=== PATIENT | male | born 1940 | race Caucasian/White ===

== ENCOUNTER → 2016-05-04 | Outpatient (CLI) | payer OTHER ==
[~2016-05-04] MED LIST: ACID CONTROL20 MG PO; ALLERGY25 MG PO; AMLODIPINE BESY10 MG PO; CALCIUM 600 +1 EAC1 PO; FISH OIL 1,001000 M2 PO; VITAMIN C500 M1 PO; ZESTRIL40 MG PO; ZINC50 M1 PO
== END ==
LOC: MRI 10:18
PROVIDERS: Family Medicine
DX: R09.89 Other specified symptoms and signs involving the circulatory and respiratory systems (principal)

== ENCOUNTER → 2016-05-16 | Outpatient (CLI) | payer OTHER ==
[~2016-05-16] VITALS: Ht 180.3 cm; Wt 43.5 kg
[~2016-05-16] MED LIST changes: +ASPIR 8181 M1 PO; +PLAVIX 300 MG300 M1 PO; +PLAVIX 75 MG TA75 M1 PO
[2016-05-16 07:41] VITALS: BP 154/67
[2016-05-16 07:41] LABS: HEMATOCRIT 44.8 % (42.0-52.0); HEMOGLOBIN 15.2 gm/dL (14.0-18.0); MCH 29.6 pg (26.0-34.0); MCHC 33.9 g/dL (28.0-37.0); MCV 87.4 fL (80.0-100.0); RBC 5.12 mil/uL (4.50-6.00); RDW 14.2 % (10.5-14.5); WBC 7.2 thou/uL (4.0-11.0)
[2016-05-16 07:52] VITALS: BP 154/67
[2016-05-16 07:52] LABS: POTASSIUM 4.2 mmol/L (3.5-5.1)
[2016-05-16 07:56] LABS: APTT 26.9 Seconds (24.5-32.8)
== END ==
LOC: SPEC 07:10
PROVIDERS: Internal Medicine
DX: I25.10 Atherosclerotic heart disease of native coronary artery without angina pectoris (principal); I70.1 Atherosclerosis of renal artery; I10 Essential (primary) hypertension; I65.22 Occlusion and stenosis of left carotid artery; I70.213 Atherosclerosis of native arteries of extremities with intermittent claudication, bilateral legs; K21.9 Gastro-esophageal reflux disease without esophagitis; Z96.651 Presence of right artificial knee joint; E78.4 Other hyperlipidemia; F17.210 Nicotine dependence, cigarettes, uncomplicated

== ENCOUNTER → 2016-05-18 | Outpatient (CLI) | payer OTHER ==
[~2016-05-18] VITALS: Ht 180.3 cm; Wt 72.6 kg
[2016-05-18 07:20] VITALS: BP 129/58
[2016-05-18 11:00] VITALS: BP 133/70
[2016-05-18 11:15] VITALS: BP 133/70
[2016-05-18 11:30] VITALS: BP 147/47
[2016-05-18 11:45] VITALS: BP 127/52
[2016-05-18 12:45] VITALS: BP 115/41
== END ==
LOC: SPEC 06:56
DX: I70.211 Atherosclerosis of native arteries of extremities with intermittent claudication, right leg (principal); I70.1 Atherosclerosis of renal artery; I25.10 Atherosclerotic heart disease of native coronary artery without angina pectoris; I10 Essential (primary) hypertension; Z96.651 Presence of right artificial knee joint; K21.9 Gastro-esophageal reflux disease without esophagitis; E78.4 Other hyperlipidemia; F17.210 Nicotine dependence, cigarettes, uncomplicated

== ENCOUNTER → 2016-09-19 | Outpatient (CLI) | payer OTHER | LOC: ULTRA 11:44 | DX: I73.9 Peripheral vascular disease, unspecified (principal); M79.605 Pain in left leg; M79.604 Pain in right leg ==

== ENCOUNTER → 2016-10-31 | Outpatient (CLI) | payer OTHER | LOC: RAD 09:11 | DX: R06.00 Dyspnea, unspecified (principal) ==

== ENCOUNTER → 2016-11-08 | Outpatient (CLI) | payer OTHER | LOC: RAD 08:50 → SPEECH 08:50 | DX: R47.02 Dysphasia (principal) ==

== ENCOUNTER → 2016-11-28 | Outpatient (CLI) | payer OTHER | LOC: CAT 08:04 | DX: R63.4 Abnormal weight loss (principal) ==

== ENCOUNTER → 2018-08-04 | Outpatient (CLI) | payer OTHER | LOC: RAD 08:02 | DX: J70.3 Chronic drug-induced interstitial lung disorders (principal); Z86.11 Personal history of tuberculosis ==

== ENCOUNTER → 2019-03-02 | Outpatient (CLI) | payer OTHER | LOC: CAT 10:44 | DX: I65.23 Occlusion and stenosis of bilateral carotid arteries (principal); R90.82 White matter disease, unspecified ==

== ENCOUNTER → 2019-04-01 | Outpatient (CLI) | payer OTHER ==
[~2019-04-01] VITALS: Ht 177.8 cm; Wt 72.6 kg
[~2019-04-01] MED LIST changes: +FISH OIL 1,0001 EAC9 PO; +SLEEP AID50 MG PO; +[UNRECOGNIZED DRUG - OTHER] PO
--- NOTE | 2019-04-02 15:08 | PATH ---
[facility] [address] [place] [address] PATHOLOGY RPT PROCEDURE Name: ROSALVA WALKER Room #: REG RACHEL Padgett.#: [id number] Admission: 04/01/19 Date of : 38 Discharge: Report #: [id number] Path Case #: [id number] [facility] Accession Number: [id number] . 01 Material submitted: . esophagus - BX DISTAL ESOPHAGUS. Modifiers: distal . 01 Clinical history: . Dysphagia, reflux, R/O Landon's . 02 Diagnosis: Gastroesophageal mucosa, distal esophagus R/O Landon's, endoscopic biopsy: - Specialized columnar epithelium (gastric cardia-type mucosa) with intestinal metaplasia, consistent with Landon's metaplasia. - Negative for dysplasia. - Squamous mucosa with mild esophagitis. . (IUV:kyaw; 04/02/2019) QMS 04/02/2019 1319 Local . 02 Electronically signed: . Estephanie Rivera MD, Pathologist NPI- [id number] . 01 Gross description: . The specimen is received in formalin, labeled "Rosalva Walker", "biopsy distal esophagus". Received are multiple segments of pale white-del rio soft tissue ranging in size from 0.1 cm to 0.2 cm. The specimen is entirely submitted in cassette A1.([facility]; 04/01/2019) BETH/CLARITA 04/01/2019 1738 Local . 02 Pathologist provided ICD-10: K22.70, K20.9 . 02 CPT . 691996 Specimen Comment: A courtesy copy of this report has been sent to [phone] Specimen Comment: Report sent to Performed at: [address] [id number] MD Dereck Antonio MD Phone: [phone] Performed at: [address] [id number] MD Estephanie Rivera MD Phone: [phone]
--- NOTE | 2019-04-06 09:58 | P ---
[facility] [address] [place] [address] PROCEDURE REPORT Name: JERO RICHARDS Room #: REG [facility] Ave#: [id number] Admission: 04/01/19 Attend Phys: Alex Joseph Discharge: Date of : 38 Report #: [id number] THIS REPORT FOR: cc: Emir Grimm,Alex Quiñones MD ~ CC: Alex Grimm DO DATE OF SERVICE: 04/01/2019 PROCEDURE PERFORMED: Upper endoscopy with biopsies and esophageal dilation. HISTORY OF PRESENT ILLNESS: The patient is a 78-year-old male with a history of dysphagia. He underwent an upper endoscopy by myself in 2015. A 51-Croatian dilation was performed at that time. He states there was not much benefit with dilation in the past, but at that time, he was taking PPI therapy. He is no longer taking a PPI, but uses Tums on a p.r.n. basis for heartburn at times. Plan is for repeat upper endoscopy with dilation. DESCRIPTION OF PROCEDURE: The risks and benefits of the procedure were explained to the patient, those risks including but not limited to bleeding, perforation and the risk of sedation. He understood these risks and gave informed consent. Sedation was given using propofol per anesthesia. Next, using a standard Olympus upper endoscope, the scope was placed in the patient's mouth and advanced under direct vision through the esophagus, stomach and into the second portion of the duodenum. The upper and mid esophagus was normal in appearance, although it was mildly dilated. In the distal esophagus at the GE junction, a possible short segment Landon's was noted. Biopsies were obtained. Also noted was grade A erosive esophagitis. No strictures were seen. Upon entering the stomach, small hiatal hernia was noted. Overall, the gastric mucosa was normal. The pylorus was normal and patent. The duodenal bulb, first and second portion were all normal. The scope was then brought back up into the patient's stomach and a Savary guidewire was inserted through the scope, leaving the guidewire in place as the scope was then withdrawn. Next, a 54-Croatian Savary dilation of the esophagus was performed without difficulty. The wire and dilator were removed. The scope was reintroduced into the patient's stomach. A small mucosal tear was noted in the proximal esophagus. No evidence of bleeding. The scope was then withdrawn and the procedure terminated. The patient tolerated the procedure well. IMPRESSION: 1. Possible short segment Landon's. 2. Grade A erosive esophagitis. 3. Small hiatal hernia. [address] [address] PROCEDURE REPORT Name: JERO RICHARDS Room #: REG CLNatalie Dorado#: [id number] Admission: 04/01/19 Attend Phys: Alex Joseph Discharge: Date of : 38 Report #: [id number] 4. Otherwise, normal upper endoscopy. RECOMMENDATIONS: 1. Await biopsy results. 2. Would recommend daily PPI therapy. 3. Observe the patient post-dilation. If there is no benefit, we discussed likely proceeding with esophageal manometry. Thank you for allowing me to participate in his care. <ELECTRONICALLY SIGNED> By: Alex Delcid MD 04/06/19 0958 0930 1010 Alex Delcid MD /nt
== END | disposition home or self-care (01) ==
LOC: GI 07:26
DX: R13.19 Other dysphagia (principal); K22.70 Barrett's esophagus without dysplasia; K20.9 Esophagitis, unspecified; K44.9 Diaphragmatic hernia without obstruction or gangrene; I10 Essential (primary) hypertension; I73.9 Peripheral vascular disease, unspecified; K21.9 Gastro-esophageal reflux disease without esophagitis; I25.2 Old myocardial infarction; E78.5 Hyperlipidemia, unspecified; G47.30 Sleep apnea, unspecified; F17.210 Nicotine dependence, cigarettes, uncomplicated; Z98.890 Other specified postprocedural states; Z79.899 Other long term (current) drug therapy; Z96.651 Presence of right artificial knee joint; Z86.73 Personal history of transient ischemic attack (TIA), and cerebral infarction without residual deficits
CPT/HCPCS: 62110; 62900

== ENCOUNTER → 2019-06-11 | Outpatient (CLI) | payer OTHER | LOC: SJCVCIMAG 07:53 | DX: I70.202 Unspecified atherosclerosis of native arteries of extremities, left leg (principal); I25.10 Atherosclerotic heart disease of native coronary artery without angina pectoris; I10 Essential (primary) hypertension; E78.00 Pure hypercholesterolemia, unspecified; Z72.0 Tobacco use ==

== ENCOUNTER → 2019-12-15 | Outpatient (CLI) | payer OTHER ==
[~2019-12-15] MED LIST changes: +LORATIDINE 10 M10 M1 PO; +PROTONIX40 M2 PO; +SIMVASTATIN80 MG PO; +SUPER THERAVIT1 EACH PO; +TAMSULOSIN HCL0.4 MG PO; +TYLENOL EXTRA500 MG PO; +VITAMIN C500 M2 PO
== END ==
LOC: SJCVCIMAG 07:33
PROVIDERS: ATTEND Internal Medicine Cardiovascular Disease
DX: I65.23 Occlusion and stenosis of bilateral carotid arteries (principal); I70.203 Unspecified atherosclerosis of native arteries of extremities, bilateral legs; R94.31 Abnormal electrocardiogram [ECG] [EKG]; I44.1 Atrioventricular block, second degree; I25.10 Atherosclerotic heart disease of native coronary artery without angina pectoris; R00.1 Bradycardia, unspecified; I77.9 Disorder of arteries and arterioles, unspecified; I10 Essential (primary) hypertension; E78.00 Pure hypercholesterolemia, unspecified; F17.210 Nicotine dependence, cigarettes, uncomplicated; Z95.828 Presence of other vascular implants and grafts; Z79.899 Other long term (current) drug therapy

== ENCOUNTER → 2019-12-18 | Outpatient (CLI) | payer OTHER ==
[~2019-12-18] VITALS: Ht 180.3 cm; Wt 68.9 kg
[2019-12-18 10:19] VITALS: BP 148/55
[2019-12-18 10:20] LABS: HEMATOCRIT 38.6 % (42.0-52.0); HEMOGLOBIN 12.8 gm/dL (14.0-18.0); MCH 29.8 pg (26.0-34.0); MCHC 33.2 g/dL (28.0-37.0); MCV 89.8 fL (80.0-100.0); RBC 4.3 mil/uL (4.50-6.00); RDW 14.2 % (10.5-14.5); WBC 6.8 thou/uL (4.0-11.0)
[2019-12-18 10:27] LABS: CALCIUM 8.2 mg/dL (8.5-10.1); CREATININE 1.2 mg/dL (0.7-1.3); POTASSIUM 4.2 mmol/L (3.5-5.1)
--- NOTE | 2019-12-21 17:50 | CATHLAB ---
[facility] [address] [place] [address] INVASIVE PROCEDURE REPORT Name: JERO RICHARDS Room #: REG RACHEL Dorado#: [id number] Admission: 12/18/19 Attend Phys: Deshaun Bishop MD Discharge: Date of : 38 Report #: [id number] THIS REPORT FOR: cc: Emir Grimm James A. DO Mancuso, Gerald M. MD [facility] ~ APPROVED REPORT Study performed: 12/18/2019 12:24:27 Patient Details Patient Status: Out-Patient Room #: The patient is a 79 year-old male Event Personnel Chris Chester Aircraft Part Assembler, Maribell Zuleta RN RN, Xenia High RN RN, Royal Abbott RTR Scrub, Shelly Dobbins RTR Monitor Procedures Performed Left Heart Cath w/or w/o Coronaries [id number] [facility] Art Access - R femoral artery* Hemostasis w/ Mynx 13207 Initial Mod Sed Same Phys/QHP Gr5y 624461 Procedure Narrative A PINNACLE 6FR Sheath #[id number] sheath was inserted into the RFA 5X11^. Coronary angiography was performed using coronary diagnostic catheters. The right coronary system was accessed and visualized with a JR4 catheter. The left coronary system was accessed and visualized with a JL4 catheter. The left ventricle was accessed and visualized with a PIGTAIL catheter. Left ventricular/Aortic Valve gradient assessed via catheter pullback. Left ventriculogram was performed in 30 degree projection. Closure device was deployed with a Fr MYNXGRIP 6/7F [id number]. The patient tolerated the procedure well and there were no complications associated with the procedure. There was no hematoma. Intraoperative Conscious Sedation Sedation start time: 13:02 Case end Time: 13:37 Fentanyl 125 mcg Versed 1 mg Fluoro Time: 13.33 minutes Dose: DAP 84656.40 cGycm2 1090 mGy [facility] [email or web address] [address] INVASIVE PROCEDURE REPORT Name: JERO RICHARDS Room #: REG [facility]#: [id number] Admission: 12/18/19 Attend Phys: Deshaun Bishop, Discharge: Date of : 38 Report #: [id number] Contrast Type and Amount: Visipaque 258 ml Hemodynamics The aortic pressure is 190/58 mmHg with a mean of 95 mmHg. The left ventricular pressure is 158/17 mmHg with a mean of mmHg. The left ventricular end diastolic pressure is 26 mmHg. Pullback from the left ventricle to the aorta revealed no gradient across the aortic valve. PCI Technique Lesion Percutaneous coronary intervention was performed on the Mid sup femoral. Conclusion #1. Normal left jugular size and systolic function EF 55%. 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 #3 a large dominant right coronary artery that also appears to be giving off a circumflex system and a portion of the LAD. 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 #5 there either is an atretic and occluded LAD or anatomically absent portions of this anterior wall appear to be filled via this vessel in addition. No clear evidence for an intervention. Recommendations and plan: Bizarre anatomy as described above. No clear indication for an intervention here. I would like to obtain nuclear stress test correlation. Patient has no significant symptoms that I can elicit. LV function is preserved. <ELECTRONICALLY SIGNED> By: Chris Chester MD, FACC 12/21/191749 49 49 Chris Chester MD, FACC /INF
== END | disposition home or self-care (01) ==
LOC: CATH 09:13
PROVIDERS: ATTEND Nuclear Medicine Nuclear Cardiology
DX: I25.10 Atherosclerotic heart disease of native coronary artery without angina pectoris (principal); I70.248 Atherosclerosis of native arteries of left leg with ulceration of other part of lower leg; L97.929 Non-pressure chronic ulcer of unspecified part of left lower leg with unspecified severity; I70.1 Atherosclerosis of renal artery; I15.0 Renovascular hypertension; I10 Essential (primary) hypertension; I25.2 Old myocardial infarction; E78.5 Hyperlipidemia, unspecified; G47.30 Sleep apnea, unspecified; K21.9 Gastro-esophageal reflux disease without esophagitis; F17.210 Nicotine dependence, cigarettes, uncomplicated; Z98.890 Other specified postprocedural states; Z79.899 Other long term (current) drug therapy; Z96.651 Presence of right artificial knee joint

== ENCOUNTER → 2019-12-29 | Outpatient (CLI) | payer OTHER | LOC: SJCVCIMAG 08:44 | PROVIDERS: ATTEND Internal Medicine Cardiovascular Disease | DX: I25.10 Atherosclerotic heart disease of native coronary artery without angina pectoris (principal); I49.3 Ventricular premature depolarization; Z79.899 Other long term (current) drug therapy ==

== ENCOUNTER → 2020-01-22 | Outpatient (CLI) | payer OTHER | LOC: SJCVC 14:51 | PROVIDERS: ATTEND Internal Medicine Cardiovascular Disease | DX: R94.31 Abnormal electrocardiogram [ECG] [EKG] (principal); I25.10 Atherosclerotic heart disease of native coronary artery without angina pectoris; I77.9 Disorder of arteries and arterioles, unspecified; I73.9 Peripheral vascular disease, unspecified; R00.1 Bradycardia, unspecified; I10 Essential (primary) hypertension; E78.00 Pure hypercholesterolemia, unspecified; G47.33 Obstructive sleep apnea (adult) (pediatric); F17.210 Nicotine dependence, cigarettes, uncomplicated; Z86.73 Personal history of transient ischemic attack (TIA), and cerebral infarction without residual deficits; Z72.89 Other problems related to lifestyle; Z79.899 Other long term (current) drug therapy ==

== ENCOUNTER → 2020-05-10 | Outpatient (CLI) | payer OTHER | LOC: SJCVC 14:02 | PROVIDERS: ATTEND Internal Medicine Cardiovascular Disease | DX: I49.1 Atrial premature depolarization (principal); I25.10 Atherosclerotic heart disease of native coronary artery without angina pectoris; I73.9 Peripheral vascular disease, unspecified; I10 Essential (primary) hypertension; I77.9 Disorder of arteries and arterioles, unspecified; E78.00 Pure hypercholesterolemia, unspecified; G47.33 Obstructive sleep apnea (adult) (pediatric); F17.210 Nicotine dependence, cigarettes, uncomplicated; Z98.890 Other specified postprocedural states; Z79.899 Other long term (current) drug therapy; Z86.16 Personal history of COVID-19; Z86.73 Personal history of transient ischemic attack (TIA), and cerebral infarction without residual deficits ==

== ENCOUNTER → 2020-05-26 | Outpatient (CLI) | payer OTHER | LOC: SJCVCIMAG 07:24 | PROVIDERS: ATTEND Nuclear Medicine Nuclear Cardiology | DX: I70.203 Unspecified atherosclerosis of native arteries of extremities, bilateral legs (principal); I49.1 Atrial premature depolarization; I49.8 Other specified cardiac arrhythmias; R06.00 Dyspnea, unspecified; R51.9 Headache, unspecified; I77.9 Disorder of arteries and arterioles, unspecified; I25.10 Atherosclerotic heart disease of native coronary artery without angina pectoris; I10 Essential (primary) hypertension; E78.00 Pure hypercholesterolemia, unspecified; G47.33 Obstructive sleep apnea (adult) (pediatric); F17.210 Nicotine dependence, cigarettes, uncomplicated; Z95.828 Presence of other vascular implants and grafts; Z98.890 Other specified postprocedural states; Z79.899 Other long term (current) drug therapy; Z86.16 Personal history of COVID-19; Z86.73 Personal history of transient ischemic attack (TIA), and cerebral infarction without residual deficits ==

== ENCOUNTER → 2020-12-27 | Outpatient (CLI) | payer OTHER | LOC: SJCVCIMAG 08:51 | PROVIDERS: ATTEND Nuclear Medicine Nuclear Cardiology | DX: I65.23 Occlusion and stenosis of bilateral carotid arteries (principal); I70.201 Unspecified atherosclerosis of native arteries of extremities, right leg; I49.1 Atrial premature depolarization; I10 Essential (primary) hypertension; I25.10 Atherosclerotic heart disease of native coronary artery without angina pectoris; E78.00 Pure hypercholesterolemia, unspecified; G47.33 Obstructive sleep apnea (adult) (pediatric); I77.9 Disorder of arteries and arterioles, unspecified; F17.210 Nicotine dependence, cigarettes, uncomplicated; Z79.899 Other long term (current) drug therapy; Z72.89 Other problems related to lifestyle; Z86.16 Personal history of COVID-19 ==